=== PATIENT | female | born 1990 | race African-American/Black ===

== ENCOUNTER 2017-02-18 01:41 | Emergency (ER) | payer OTHER ==
[~2017-02-18] VITALS: Ht 170.2 cm; Wt 145.1 kg
[2017-02-18 01:49] VITALS: BP 123/79
== END 2017-02-18 02:46 | disposition home or self-care (01) ==
LOC: ER 01:41
DX: J02.9 Acute pharyngitis, unspecified (principal)
CPT/HCPCS: 86403-TC; 87070-TC; A4606; Z7610